=== PATIENT | female | born 1985 | race Caucasian/White ===

== ENCOUNTER 2017-02-15 06:19 | Emergency (ER) | payer BC, OTHER ==
[~2017-02-15 06:19] MED LIST: LIDO2SOL TD; LRT5 PO
[2017-02-15 06:25] VITALS: TEMP 36.8; Ht 152.4 cm
[2017-02-15] MEDS ORDERED: ALBU18002 INH (06:42)
[2017-02-15] MEDS ORDERED: ATV/2 PO (06:42)
[2017-02-15] MEDS ORDERED: ONDANSETRON INJ 2 MG/ML 2 ML VIAL IV STA (06:52)
[2017-02-15] MEDS ORDERED: HYDROmorphone INJ 1 MG/ML SYR IV STA ×2 (06:52→08:15)
--- NOTE | 2017-02-15 06:54 | EMERGENCY ROOM VISIT NOTE ---
History Report prepared by Zoey: Boo Golden Under the Supervision of: Dr. Paxton Hinkle M.D. First contact with patient: 06:25 Chief Complaint: SHORTNESS OF BREATH Stated Complaint: ANXIETY Nursing Triage Summary: pt brought to main ED from home by ALS. ALS reports pt had a fight with her this morning and became SOB with chest tightness after. pt has a hx of asthma, used inhalers with no relief. ALS reports pt was hyperventilating and having numbness in bilateral arms. pt reports once having to be ventilated due to asthma complications and was concerned about SOB. pt states she also has a hx of anxiety and takes 6mg ativan a day. states "I wasn't sure if this was my anxiety or asthma, but it's never been this bad." pt also reports a hx of chrons. upon assessment, pt breathing regularly and independently. lungs clear in all gallo. pt alert and oriented x4. pt c/o chest tightness and left sided abdomen pain. pt denies SI and HI. History of Present Illness The patient is a 31 year old female with a history of asthma and Crohn's disease who presents to the Emergency Room via ALS with complaints of an anxiety attack episode that occurred prior to arrival this morning. She says that she got a lot of pressure in her chest, and got short of breath. She adds that she then started getting her Crohn's abdominal pain, which continued to worsen to a 7 out of 10 in severity. The patient states that she has never had pressure in her chest before. She states that currently she still has a bit of tightness and pain. She says that she does not feel like an asthma attack. The patient says that she is not on any steroids right now. She notes that she has a history of a bowel resection. She states that she has no chance of , but has had 3 periods this month, which has never happened to her before. The patient still has her gallbladder and appendix. Source of History: patient Onset: VENEER GLUER this morning Position: other (global - anxiety attack) Quality: other (did not feel like asthma attack) Timing: other (episode) Associated Symptoms: + chest pain (tightness), + SOB, + abdominal pain Note: Associated symptoms: No other associated symptoms noted. Review of Systems See HPI for pertinent positives & negatives. A total of 10 systems reviewed and were otherwise negative. Past Medical & Surgical Medical Problems: (1) Crohns disease Surgical Problems: (1) History of bowel resection Family History No pertinent family history Social History Smoking Status: Current Some Day Smoker Marital Status: Occupation Status: employed Current/Historical Medications Scheduled PRN Albuterol Sulfate (Proair Respiclick), 2 PUFFS INH DIRECTED PRN for SOB/ Wheezing Lorazepam (Ativan), 6 MG PO DIRECTED PRN for Anxiety Allergies Coded Allergies: NUTS (Verified Allergy, Severe, ANAPHYLAXIS, 02/15/17) Oily Fish (Verified Allergy, Severe, 02/15/17) REPORTS ALLERGY TO "ALL" FISH, RXN = ANAPHYLAXIS Penicillins (Verified Allergy, Severe, ANAPHYLAXIS (PT NOT SURE WHAT DRUG , THINKS A PCN), 02/15/17) White Fish (Verified Allergy, Severe, 02/15/17) REPORTS ALLERGY TO "ALL" FISH, RXN = ANAPHYLAXIS Aspirin (Verified Allergy, Mild, 0, 02/15/17) Fish Oil (Verified Allergy, Mild, 02/15/17) Peanut (Verified Allergy, Mild, 02/15/17) Sulfa Drugs (Verified Allergy, Mild, 0, 02/15/17) Uncoded Allergies: CONTRASTMEDIA (Allergy, Mild, 04/27/09) FISH (Adverse Reaction, Unknown, THROAT SWELLING, 04/13/09) PEANUTS (Adverse Reaction, Unknown, THROAT SWELLING, 04/13/09) Physical Exam Vital Signs Date Time Temp Pulse Resp B/P (MAP) Pulse Ox O2 Delivery O2 Flow Rate FiO2 02/15/17 13:38 85 17 140/82 98 02/15/17 12:25 90 02/15/17 11:52 91 17 159/98 96 Room Air 02/15/17 10:45 89 18 153/113 96 Room Air 02/15/17 09:30 93 18 148/99 99 Room Air 02/15/17 09:23 117 28 147/117 98 Room Air 02/15/17 08:49 91 18 98 Room Air 02/15/17 07:25 109 02/15/17 07:20 92 18 159/117 92 Room Air 02/15/17 06:25 96 Room Air 02/15/17 06:25 36.8 106 18 167/116 96 Room Air Physical Exam GENERAL: Patient is a healthy-appearing well-nourished 31 year old female. HEAD: Normocephalic atraumatic EYES: Ocular movements intact pupils equal and react to light OROPHARYNX mucous membranes are moist no exudates present no erythema or edema present NECK: Supple no nuchal rigidity CHEST: Good equal expansion LUNGS: Clear and equal to auscultation CARDIAC: Normal S1 and S2 ABDOMEN: Tender to left lower quadrant. Soft, no guarding BACK: No CVA tenderness EXTREMITIES: No pain upon palpation normal muscle strength in all groups no clubbing cyanosis or edema NEURO: Patient is following commands and answering questions appropriately. Alert and oriented x3 Cranial Nerves 2-12 grossly intact Medical Decision & Procedures ER Provider Diagnostic Interpretation: Radiology results as stated below per my review and radiologist interpretation: CHEST AND ABDOMEN 2 VIEWS HISTORY: Pt c/o diffuse abd pain COMPARISON: KUB 07/31/2009. Chest 07/12/2008. FINDINGS: The lungs are clear. The cardiomediastinal silhouette is within normal limits. There is no pneumoperitoneum or pneumatosis. The bowel gas pattern is unremarkable. No evidence for bowel obstruction. Suture material within the right side the abdomen. There are few punctate left renal calculi. No ureteral calculi. Gas is seen throughout the nondistended colon. IMPRESSION: 1. No acute process within the chest. 2. No evidence for bowel obstruction. 3. Left-sided nephrolithiasis. No ureteral calculi. Electronically signed by: Jose Gamino M.D. 02/15/2017 8:02 AM Dictated Date/Time: 02/15/2017 8:00 AM ABDOMEN AND PELVIS CT WITH IV CONTRAST CT DOSE: 243.53 mGy.cm HISTORY: Pt c/o LLQ abd pain TECHNIQUE: Multiaxial CT images of the abdomen and pelvis were performed following the use of intravenous contrast. A dose lowering technique was utilized adhering to the principles of ALARA. COMPARISON STUDY: Abdomen and pelvis CT 07/28/2009. FINDINGS: The lung bases are clear. The liver, gallbladder, spleen, adrenal glands, and pancreas are unremarkable. No retroperitoneal lymphadenopathy. Tiny fat-containing periumbilical hernia. The bladder, uterus, and ovaries are unremarkable. No pelvic free fluid. Prior ileocecal anastomosis. Therefore, the appendix is not identified and likely surgically absent. The renal calculi seen on the prior abdominal series are likely obscured by the intravenous contrast. Mild cortical scarring within the right kidney. The left kidney enhances normally. No ureteral calculi. No hydronephrosis. No bowel wall thickening or obstruction. A few scattered pelvic calcifications. These are of doubtful clinical significance. IMPRESSION: 1. No bowel wall thickening or obstruction. 2. No hydronephrosis. No ureteral calculi. The left renal calculi seen on the prior abdominal series is obscured by the intravenous contrast. 3. Postoperative changes as described above. Electronically signed by: Jose Gamino M.D. 02/15/2017 8:58 AM Dictated Date/Time: 02/15/2017 8:50 AM Laboratory Results 02/15/17 07:12 Red Blood Count 4.84, Mean Corpuscular Volume 90.7, Mean Corpuscular Hemoglobin 31.2, Mean Corpuscular Hemoglobin Concent 34.4, Mean Platelet Volume 9.9, Neutrophils (%) (Auto) 73.4, Lymphocytes (%) (Auto) 18.6, Monocytes (%) (Auto) 4.8, Eosinophils (%) (Auto) 2.6, Basophils (%) (Auto) 0.3, Neutrophils # (Auto) 8.79, Lymphocytes # (Auto) 2.22, Monocytes # (Auto) 0.58, Eosinophils # (Auto) 0.31, Basophils # (Auto) 0.03 02/15/17 07:12 Test 02/15/17 06:39 02/15/17 07:12 02/15/17 12:10 Urine Color YELLOW Urine Appearance CLEAR (CLEAR) Urine pH 5.0 (4.5-7.5) Urine Specific [place] 1.015 (1.000-1.030) Urine Protein NEG (NEG) Urine Glucose (UA) NEG (NEG) Urine Ketones NEG (NEG) Urine Occult Blood NEG (NEG) Urine Nitrite NEG (NEG) Urine Bilirubin NEG (NEG) Urine Urobilinogen NEG (NEG) Urine Leukocyte Esterase SMALL (NEG) Urine WBC (Auto) 5-10 /hpf (0-5) Urine RBC (Auto) 0-4 /hpf (0-4) Urine Hyaline Casts (Auto) 1-5 /lpf (0-5) Urine Epithelial Cells (Auto) >30 /lpf (0-5) Urine Bacteria (Auto) NEG (NEG) Urine Test NEG (NEG) Urine Opiates Screen NEG (NEG) Urine Methadone, Qualitative NEG (NEG) Urine Barbiturates NEG (NEG) Urine Phencyclidine (PCP) Level NEG (NEG) Ur Amphetamine/Methamphetamine NEG (NEG) MDMA (Ecstasy) Screen NEG (NEG) Urine Benzodiazepines Screen NEG (NEG) Urine Cocaine Metabolite NEG (NEG) Urine Marijuana (THC) POS (NEG) White Blood Count 11.96 K/uL (4.8-10.8) Red Blood Count 4.84 M/uL (4.2-5.4) Hemoglobin 15.1 g/dL (12.0-16.0) Hematocrit 43.9 % (37-47) Mean Corpuscular Volume 90.7 fL (80-100) Mean Corpuscular Hemoglobin 31.2 pg (25-34) Mean Corpuscular Hemoglobin Concent 34.4 g/dl (32-36) Platelet Count 246 K/uL (130-400) Mean Platelet Volume 9.9 fL (7.4-10.4) Neutrophils (%) (Auto) 73.4 % Lymphocytes (%) (Auto) 18.6 % Monocytes (%) (Auto) 4.8 % Eosinophils (%) (Auto) 2.6 % Basophils (%) (Auto) 0.3 % Neutrophils # (Auto) 8.79 K/uL (1.4-6.5) Lymphocytes # (Auto) 2.22 K/uL (1.2-3.4) Monocytes # (Auto) 0.58 K/uL (0.11-0.59) Eosinophils # (Auto) 0.31 K/uL (0-0.5) Basophils # (Auto) 0.03 K/uL (0-0.2) RDW Standard Deviation 44.5 fL (36.4-46.3) RDW Coefficient of Variation 13.5 % (11.5-14.5) Immature Granulocyte % (Auto) 0.3 % Immature Granulocyte # (Auto) 0.03 K/uL (0.00-0.02) Anion Gap 11.0 mmol/L (3-11) Estimated GFR () 116.4 Estimated GFR (Non- 100.5 BUN/Creatinine Ratio 11.6 (10-20) Calcium Level 8.5 mg/dl (8.5-10.1) Total Bilirubin 0.3 mg/dl (0.2-1) Direct Bilirubin 0.1 mg/dl (0-0.2) Aspartate Amino Transf (AST/SGOT) 31 U/L (15-37) Alanine Aminotransferase (ALT/SGPT) 27 U/L (12-78) Alkaline Phosphatase 62 U/L (45-117) Total Protein 7.4 gm/dl (6.4-8.2) Albumin 3.6 gm/dl (3.4-5.0) Lipase 308 U/L (73-393) Thyroid Stimulating Hormone (TSH) 1.820 uIu/ml (0.300-4.500) Ethyl Alcohol mg/dL 45.0 mg/dl (0-3) Labs reviewed by ED physician. Medications Administered Medications (Trade) Dose Ordered Sig/Rabia Route Start Time Stop Time Status Last Admin Dose Admin Hydromorphone HCl (Dilaudid Inj) 1 mg NOW STAT IV 02/15/17 06:52 02/15/17 06:54 DC 02/15/17 07:19 1 MG Ondansetron HCl (Zofran Inj) 4 mg NOW STAT IV 02/15/17 06:52 02/15/17 06:54 DC 02/15/17 07:18 4 MG Lorazepam (Ativan Inj) 1 mg NOW STAT IV 02/15/17 07:44 02/15/17 07:45 DC 02/15/17 08:06 1 MG Thiamine HCl (Vitamin B-1 Tab) 100 mg NOW STAT PO 02/15/17 07:44 02/15/17 07:45 DC 02/15/17 08:06 100 MG Folic Acid (Folvite Tab) 1 mg NOW STAT PO 02/15/17 07:44 02/15/17 07:45 DC 02/15/17 08:07 1 MG Sodium Chloride 1,000 ml @ 999 mls/hr Q1H1M STAT IV 02/15/17 08:15 02/15/17 09:15 DC 02/15/17 08:30 999 MLS/HR Hydromorphone HCl (Dilaudid Inj) 1 mg NOW STAT IV 02/15/17 08:15 02/15/17 08:16 DC 02/15/17 08:49 1 MG Lorazepam (Ativan Inj) 1 mg NOW STAT IV 02/15/17 09:16 02/15/17 09:17 DC 02/15/17 09:24 1 MG Ketorolac Tromethamine (Toradol Inj) 30 mg NOW STAT IV 02/15/17 11:43 02/15/17 11:44 DC 02/15/17 11:51 30 MG ECG Indication: SOB/dyspnea Rate (beats per minute): 94 Rhythm: normal sinus Findings: no acute ischemic change, no ectopy ED Course 0643: Past medical records reviewed. The patient was evaluated in room A5. A complete history and physical examination was performed. 0652: Ordered Zofran Inj 4 mg IV, Dilaudid Inj 1 mg IV. 0744: Ordered Folvite Tab 1 mg PO, Vitamin B-1 Tab 100 mg PO, Ativan Inj 1 mg IV. 0815: I reevaluated and updated the patient. Ordered Dilaudid Inj 1 mg IV, NSS 1000 ml @ 999 mls/hr IV. 1143: Ordered Toradol Inj 30 mg IV. 1310: Upon reexamination the patient is resting. I discussed results and treatment plan with the patient. She verbalizes agreement and understanding. The patient is ready for discharge. Medical Decision Differential diagnosis: Etiologies such as appendicitis, diverticulitis, PUD, biliary pathology, UTI, pancreatitis, obstruction, mesenteric ischemia, aortic pathology, infections, inflammatory bowel disease, renal colic, as well as others were entertained. This is a 31-year-old female who presents emergency department complaining of anxiety along with nausea. the patient's pulse strongly of alcohol and appears to be intoxicated. An alcohol level was obtained and found to be nearly 180. She is complaining of abdominal pain and has a history of Crohn's disease therefore she was sent for x-rays to rule out a bowel obstruction. Using shared medical decision making with the patient based on the fact that she has a slight elevation in her white blood count cell count and the patient is continuing to have pain within sent the patient for CAT scan of the abdomen and pelvis. While her medical workup was continuing the patient denied being suicidal or homicidal however asked to speak with a counselor. Case management did come in and once the patient was medically clear with her alcohol level did proceed to counselor. The patient again denied being suicidal or homicidal. Based on her laboratory work as well as her CAT scan do feel that the patient is well enough that she can be safely discharged home. While in the emergency department the patient took multiple doses of Ativan and 1 dose of Dilaudid. Medication Reconcilliation Current Medication List: was personally reviewed by me Blood Pressure Screening Patient's blood pressure: Elevated blood pressure Blood pressure disposition: Elevated BP felt to be situational Impression Primary Impression: Anxiety Additional Impression: Alcohol intoxication Scribe Attestation The scribe's documentation has been prepared under my direction and personally reviewed by me in its entirety. I confirm that the note above accurately reflects all work, treatment, procedures, and medical decision making performed by me. Departure Information Dispostion Home / Self-Care Referrals [place] Pugh M.D. (PCP) Forms HOME CARE DOCUMENTATION FORM, IMPORTANT VISIT INFORMATION, School Instructions, Work Instructions Patient Instructions Alcohol Intoxication - [facility], Anxiety Disorder, My [facility] Additional Instructions You received narcotic or benzodiazepene medication while in the emergency room today. This is an addictive medication that may cause drowziness as well as constipation. Do not drive, operate heavy machinery, or drink alcohol under the influence of this medication. You have been examined and treated today on an emergency basis only. This is not a substitute for, or an effort to provide, complete comprehensive medical care. It is impossible to recognize and treat all injuries or illnesses in a single emergency department visit. It is therefore important that you follow up closely with your PCP. Call as soon as possible for an appointment. Thank you for your time and consideration. I look forward to speaking with you again soon. Please don't hesitate to call us if you have any questions. Problem Qualifiers Additional Impression: Alcohol intoxication Complication of substance-induced condition: uncomplicated Qualified Codes: F10.920 - Alcohol use, unspecified with intoxication, uncomplicated
[2017-02-15 07:16] LABS: URINE APPEARANCE CLEAR (CLEAR); URINE BILIRUBIN NEG (NEG); URINE COLOR YELLOW; URINE EPITHELIAL CELL AUTO >30 /lpf (0-5); URINE NITRITE NEG (NEG); URINE SPECIFIC GRAVITY 1.015 (1.000-1.030); UROBILINOGEN NEG (NEG)
[2017-02-15 07:29] LABS: MANUAL MICROSCOPIC REQUIRED? NO; REVIEW REQ? NO
[2017-02-15] MEDS ORDERED: LORAZEPAM 2 MG/ML 1 ML VIAL IV STA ×2 (07:44→09:16)
[2017-02-15] MEDS ORDERED: THIAMINE HCL 100 MG TAB PO STA (07:44)
[2017-02-15 07:46] LABS: ALT/SGPT 27 U/L (12-78); AST/SGOT 31 U/L (15-37); BLOOD UREA NITROGEN 9 mg/dl (7-18); BUN/CREATININE RATIO 11.6 (10-20); CALCIUM 8.5 mg/dl (8.5-10.1); CARBON DIOXIDE 22 mmol/L (21-32); CHLORIDE 111 mmol/L (98-107); CREATININE 0.79 mg/dl (0.60-1.20); GLUCOSE 92 mg/dl (70-99); POTASSIUM 4.1 mmol/L (3.5-5.1); SODIUM 144 mmol/L (136-145)
[2017-02-15 07:49] LABS: ALKALINE PHOSPHATASE 62 U/L (45-117)
[2017-02-15 07:52] LABS: BASO % 0.3 %; BASO ABS # 0.03 K/uL (0-0.2); COMPLETE YES; EOS % 2.6 %; HEMATOCRIT 43.9 % (37-47); IG% 0.3 %; LYMPH % 18.6 %; LYMPH ABS # 2.22 K/uL (1.2-3.4); MEAN CELL VOLUME 90.7 fL (80-100); MEAN CORPUSCULAR HEMOGLOBIN 31.2 pg (25-34); MEAN CORPUSCULAR HGB CONC 34.4 g/dl (32-36); MEAN PLATELET VOLUME 9.9 fL (7.4-10.4); MONO % 4.8 %; NEUT % 73.4 %; PLATELET COUNT 246 K/uL (130-400); RED BLOOD COUNT 4.84 M/uL (4.2-5.4); WHITE BLOOD COUNT 11.96 K/uL (4.8-10.8)
--- NOTE | 2017-02-15 08:03 | DIAGNOSTIC IMAGING REPORT ---
CHEST AND ABDOMEN 2 VIEWS HISTORY: Pt c/o diffuse abd pain COMPARISON: KUB 07/31/2009. Chest 07/12/2008. FINDINGS: The lungs are clear. The cardiomediastinal silhouette is within normal limits. There is no pneumoperitoneum or pneumatosis. The bowel gas pattern is unremarkable. No evidence for bowel obstruction. Suture material within the right side the abdomen. There are few punctate left renal calculi. No ureteral calculi. Gas is seen throughout the nondistended colon. IMPRESSION: 1. No acute process within the chest. 2. No evidence for bowel obstruction. 3. Left-sided nephrolithiasis. No ureteral calculi. Electronically signed by: Jose Gamino M.D. 02/15/2017 8:02 AM Dictated Date/Time: 02/15/2017 8:00 AM
[2017-02-15] MEDS ORDERED: SODIUM CHLORIDE 0.9% 1000ML 1,000 ML IV STA (08:15)
[2017-02-15] MEDS ORDERED: OPTIRAY 320 IV PRN (08:30)
--- NOTE | 2017-02-15 09:00 | DIAGNOSTIC IMAGING REPORT ---
ABDOMEN AND PELVIS CT WITH IV CONTRAST CT DOSE: 243.53 mGy.cm HISTORY: Pt c/o LLQ abd pain TECHNIQUE: Multiaxial CT images of the abdomen and pelvis were performed following the use of intravenous contrast. A dose lowering technique was utilized adhering to the principles of ALARA. COMPARISON STUDY: Abdomen and pelvis CT 07/28/2009. FINDINGS: The lung bases are clear. The liver, gallbladder, spleen, adrenal glands, and pancreas are unremarkable. No retroperitoneal lymphadenopathy. Tiny fat-containing periumbilical hernia. The bladder, uterus, and ovaries are unremarkable. No pelvic free fluid. Prior ileocecal anastomosis. Therefore, the appendix is not identified and likely surgically absent. The renal calculi seen on the prior abdominal series are likely obscured by the intravenous contrast. Mild cortical scarring within the right kidney. The left kidney enhances normally. No ureteral calculi. No hydronephrosis. No bowel wall thickening or obstruction. A few scattered pelvic calcifications. These are of doubtful clinical significance. IMPRESSION: 1. No bowel wall thickening or obstruction. 2. No hydronephrosis. No ureteral calculi. The left renal calculi seen on the prior abdominal series is obscured by the intravenous contrast. 3. Postoperative changes as described above. Electronically signed by: Jose Gamino M.D. 02/15/2017 8:58 AM Dictated Date/Time: 02/15/2017 8:50 AM
[2017-02-15 09:45] LABS: BENZODIAZEPINE, URINE NEG (NEG); COCAINE,URINE NEG (NEG); PHENCYCLIDINE, URINE NEG (NEG)
[2017-02-15] MEDS ORDERED: KETOROLAC TROMETHAMINE 30 MG/ML VIAL IV STA (11:43)
[2017-02-15 13:38] VITALS: BP 140/82; PULSE 85; O2SAT 98
== END 2017-02-15 13:30 | disposition home or self-care (01) ==
LOC: EDBD 06:19 → EEVIPCON 06:20 → C.EDA 06:20
DX: F41.9 Anxiety disorder, unspecified (principal); F10.920 Alcohol use, unspecified with intoxication, uncomplicated; R11.0 Nausea; J45.909 Unspecified asthma, uncomplicated; K50.90 Crohn's disease, unspecified, without complications; F17.200 Nicotine dependence, unspecified, uncomplicated; Z90.49 Acquired absence of other specified parts of digestive tract